=== PATIENT | male | born 1995 | race Caucasian/White ===

== ENCOUNTER → 2017-05-08 | Outpatient (CLI) | payer OTHER ==
[~2017-05-08] MED LIST: IBUP800T PO
== END | disposition home or self-care (01) ==
LOC: LAB 07:29
PROVIDERS: ATTEND Nurse Practitioner Primary Care
DX: Z13.220 Encounter for screening for lipoid disorders (principal); M54.5 Low back pain; R06.02 Shortness of breath; R53.83 Other fatigue; R06.83 Snoring; R73.09 Other abnormal glucose; E55.9 Vitamin D deficiency, unspecified; R79.89 Other specified abnormal findings of blood chemistry; Z72.0 Tobacco use; Z68.42 Body mass index [BMI] 45.0-49.9, adult
CPT/HCPCS: 36415; 71020; 72100; 80053; 80061; 82043; 82306; 82607; 82746; 83036; 84425; 84439; 84443; 84480; 85025; 86803